=== PATIENT | female | born 1960 | race Caucasian/White ===

== ENCOUNTER 2021-04-13 20:55 | Emergency (ER) | payer MEDICAID ==
[~2021-04-13] VITALS: Ht 175.3 cm; Wt 117.9 kg
[2021-04-13 20:55] VITALS: BP_SYST 154
[2021-04-14] MEDS ORDERED: CLINDAMYCIN HCL 150 MG CAPSULE PO ONE (01:30)
[2021-04-14] MEDS ORDERED: NAPR-686 PO (01:31)
[2021-04-14] MEDS ORDERED: CLIN300C12 PO (01:31)
[2021-04-14] MEDS ORDERED: ESTR42.53 VG (01:38)
[2021-04-14] MEDS ORDERED: VIS50 PO (01:38)
[2021-04-14 01:45] VITALS: BP_SYST 142
== END 2021-04-14 01:45 | disposition home or self-care (01) ==
LOC: SED 20:55
DX: L03.012 Cellulitis of left finger (principal); Z79.899 Other long term (current) drug therapy
CPT/HCPCS: 99283

== ENCOUNTER 2021-06-04 18:18 | Emergency (ER) | payer MEDICAID ==
[~2021-06-04] VITALS: Ht 175.3 cm; Wt 117.9 kg
[~2021-06-04 18:18] MED LIST: CLIN300C12 PO; ESTR42.53 VG; NAPR-686 PO; VIS50 PO
[2021-06-04 18:26] VITALS: BP_SYST 155
--- NOTE | 2021-06-04 18:32 | NUR ---
Patient triaged and placed in waiting room. VSS and patient appears in no acute distress at this time. Accompanied by self, awaiting available bed, and MD notified of need for MSE.
--- NOTE | 2021-06-04 19:38 | NUR ---
Patient to ER bed [facility] to [facility] for evaluation. Side rails up. Report given to DELISA SILVA.
--- NOTE | 2021-06-04 19:40 | NUR ---
DR. TRACY AT BEDSIDE FOR EVALUATION.
[2021-06-04] MEDS ORDERED: ACETAMINOPHEN 500 MG TABLET PO ONE (19:45)
--- NOTE | 2021-06-04 20:51 | NUR ---
PT WAS AT HOME AND ACCIDENTLY TRIPPED AND FELL LANDING ON HER RIGHT UPPER ARM AND SHOULDER, PT FELL ON CARPET. DENIES HITTING HEAD, NO LOC PT ABLE TO MOVE ARM HOWEVER HAS INCREASED PAIN WITH MOVEMENT. NO DEFORMITY NOTED TO ARM OR COLLARBONE. PALPABLE RADIAL PULSE, PT HAS POSITIVE HAND PRINT SHOP HELPER. NO BRUISING OR SWELLING NOTED TO ARM. PT PLACED IN GURNEY, BED IN LOWEST POSITION, LOCKED, AND SIDERAIL UP X 1.
--- NOTE | 2021-06-04 20:56 | NUR ---
PT STILL C/O OF 02/11 AFTER RECEIVING TYLENOL, SIN AWARE.
[2021-06-04] MEDS ORDERED: IBUPROFEN 800 MG TABLET PO ONE (21:00)
--- NOTE | 2021-06-04 21:33 | NUR ---
PT STATES PAIN STILL 8/10, HOWEVER DOES NOT WANT ANYTHING STRONGER FOR PAIN.
--- NOTE | 2021-06-04 22:10 | NUR ---
ARM SLING PLACED TO RIGHT ARM, PT STATES FEELS SECURE.
[2021-06-04 22:23] VITALS: BP_SYST 126
--- NOTE | 2021-06-04 22:25 | NUR ---
Patient given written and verbal discharge instructions and verbalizes understanding. ER MD discussed with patient the results and treatment provided. Patient in stable condition. ID arm band removed. Patient educated on pain management and to follow up with PMD. Pain Scale 7. Opportunity for questions provided and answered.
== END 2021-06-04 22:25 | disposition home or self-care (01) ==
LOC: SED 18:18
DX: S42.144A Nondisplaced fracture of glenoid cavity of scapula, right shoulder, initial encounter for closed fracture (principal); Z79.899 Other long term (current) drug therapy; W01.198A Fall on same level from slipping, tripping and stumbling with subsequent striking against other object, initial encounter; Y93.89 Activity, other specified; Y92.89 Other specified places as the place of occurrence of the external cause; Y99.8 Other external cause status
CPT/HCPCS: 73030; 73200-TC; 76376; 99284

== ENCOUNTER 2022-10-22 20:21 | Emergency (ER) | payer MEDICAID ==
[~2022-10-22] VITALS: Ht 176.5 cm; Wt 122.0 kg
[~2022-10-22 20:21] MED LIST changes: +CLIN-142 PO; -CLIN300C12 PO
[2022-10-22 20:27] VITALS: BP_SYST 139
[2022-10-22] MEDS ORDERED: ACETAMINOPHEN 500 MG TABLET PO ONE (21:15)
[2022-10-22] MEDS ORDERED: IBUPROFEN 600 MG TABLET PO ONE (21:15)
[2022-10-22] MEDS ORDERED: LIDOINT TP (22:19)
[2022-10-22] MEDS ORDERED: IBUP-1970 PO (22:19)
[2022-10-22] MEDS ORDERED: ACET325T53 PO (22:19)
[2022-10-22 22:31] VITALS: BP_SYST 128
== END 2022-10-22 22:31 | disposition home or self-care (01) ==
LOC: SED 20:21
DX: M23.91 Unspecified internal derangement of right knee (principal); M25.561 Pain in right knee; Z88.7 Allergy status to serum and vaccine; Z79.899 Other long term (current) drug therapy
CPT/HCPCS: 73564; 99283

== ENCOUNTER 2022-12-01 17:27 | Emergency (ER) | payer MEDICAID ==
[~2022-12-01] VITALS: Ht 175.3 cm; Wt 122.5 kg
[~2022-12-01 17:27] MED LIST changes: +ACET325T53 PO; +IBUP-1970 PO; +LIDOINT TP; +PRED20TA PO; +TRAM50TA2 PO
[2022-12-01 17:35] VITALS: BP_SYST 152
--- NOTE | 2022-12-01 17:40 | NUR ---
tPatient triaged and placed in waiting room. VSS and patient appears in no acute distress at this time. Accompanied by self, awaiting available bed, and MD notified of need for MSE.
--- NOTE | 2022-12-01 18:00 | NUR ---
Pt brought by self, A&Ox4, pt presents to ER with R knee pain for 2 months, pt requesting pain medication, skin pink and warm, cap refill <3, VSS.
--- NOTE | 2022-12-01 18:30 | NUR ---
Dr Cardona evaluating patient at bedside
[2022-12-01] MEDS ORDERED: ACETAMINOPHEN 500 MG TABLET PO ONE (18:45)
[2022-12-01] MEDS ORDERED: KETOROLAC TROMETHAMINE 30 MG VIAL IM ONE (18:45)
[2022-12-01] MEDS ORDERED: LIDOINT TP (19:30)
[2022-12-01] MEDS ORDERED: PERC10 PO (19:30)
[2022-12-01] MEDS ORDERED: ACET-2634 PO (19:30)
[2022-12-01] MEDS ORDERED: CYCL10TA24 PO (19:30)
[2022-12-01] MEDS ORDERED: BACI15OI13 TP (19:32)
--- NOTE | 2022-12-01 20:00 | NUR ---
Patient given written and verbal discharge instructions and verbalizes understanding. ER MD discussed with patient the results and treatment provided. Patient in stable condition. ID arm band removed. Rx of Tylenol, Bacitracin, Flexeril, Lidocaine, Percocet given. Patient educated on pain management and to follow up with PMD. Pain Scale 3/10 . Opportunity for questions provided and answered. Medication side effect fact sheet provided.
[2022-12-01 20:02] VITALS: BP_SYST 152
== END 2022-12-01 20:02 | disposition home or self-care (01) ==
LOC: SED 17:27
DX: L03.031 Cellulitis of right toe (principal); M25.561 Pain in right knee; G89.29 Other chronic pain; Z88.7 Allergy status to serum and vaccine; Z79.899 Other long term (current) drug therapy
CPT/HCPCS: 99283; 96372; J1885